=== PATIENT | male | born 1975 | race Caucasian/White ===

== ENCOUNTER 2018-09-24 17:20 | Emergency (ER) | payer OTHER ==
[~2018-09-24] VITALS: Ht 162.6 cm; Wt 82.1 kg
[2018-09-24 17:24] VITALS: Ht 162.6 cm; Wt 82.1 kg
[2018-09-24 19:17] VITALS: BP 134/89
== END 2018-09-24 19:17 | disposition home or self-care (01) ==
LOC: ED 17:20
DX: S61.216A Laceration without foreign body of right little finger without damage to nail, initial encounter (principal); W20.8XXA Other cause of strike by thrown, projected or falling object, initial encounter; Y93.89 Activity, other specified; Y92.89 Other specified places as the place of occurrence of the external cause; Y99.8 Other external cause status

== ENCOUNTER 2018-09-26 11:06 | Emergency (ER) | payer OTHER ==
[~2018-09-26] VITALS: Ht 162.6 cm; Wt 83.0 kg
[2018-09-26 11:21] VITALS: BP 135/83; Ht 162.6 cm; Wt 83.0 kg
== END 2018-09-26 12:11 | disposition home or self-care (01) ==
LOC: ED 11:06
DX: S61.216D Laceration without foreign body of right little finger without damage to nail, subsequent encounter (principal); X58.XXXD Exposure to other specified factors, subsequent encounter